=== PATIENT | female | born 1950 | race Caucasian/White ===

== ENCOUNTER 2017-08-22 08:30 | Outpatient (CLI) | payer MEDICARE ==
--- NOTE | 2017-08-22 11:25 | MRI ---
MRI FACE WITH AND WITHOUT CONTRAST: History: Soft tissue swelling of the lateral midright neck. Lymphadenopathy. 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 Comparison: None. Technique: Soft tissue neck MRI is performed with and without intravenous gadolinium administration. Multisequential, multiplanar imaging performed. FINDINGS: Evaluation is limited by motion degradation and breathing motion as well as pulsation artifacts from the carotid arteries. Visualized cervical vertebral bodies have appropriate marrow signal intensity. Visualized brain paren chyma, cervical medullary junction, cervical cord, and the upper thoracic cord have a grossly normal signal intensity. Midline fatty roof of the tongue is preserved. No obvious masses in the oral cavity. Aerodigestive tr act appears to be patent. There is appropriate signal intensity of the visualized parotid and submandibular gland. There is bandar ropriate signal intensity of the cisternal cleidomastoid muscles. Carotid flow voids appear be maintained. Vertebral artery flow voids are only partially evaluated. Left thyroid lobe is surgically absent. There is a heterogeneous slightly enlarged right thyroid lobe . Evaluation is incomplete. No evidence of lymphadenopathy by size criteria. There is evidence of cervical fusion hardware at C5, C6. Associated metallic suspectiblity artifact. No high grade central canal stenosis. Varying degrees of foraminal narrowing, incompletely evaluated. At the level of the palpable marker, no solid or cystic masses. No evidence of lymphadenopathy. There are nonspecific, nonenlarged right side lymph nodes. IMPRESSION: Unremarkable pre and post contrast soft tissue neck MRI. No definite evidence of lymphadenopathy. POS: [facility]
== END 2017-08-22 08:31 | disposition home or self-care (01) ==
LOC: MRI 08:30
PROVIDERS: ATTEND Internal Medicine Medical Oncology
DX: R59.0 Localized enlarged lymph nodes (principal)
CPT/HCPCS: 70543

== ENCOUNTER 2018-01-02 14:36 | Outpatient (CLI) | payer MEDICARE | END 2018-01-02 14:37 | disposition home or self-care (01) | LOC: BICULT 14:36 | PROVIDERS: ATTEND Internal Medicine Geriatric Medicine | DX: R94.6 Abnormal results of thyroid function studies (principal); E04.1 Nontoxic single thyroid nodule; E89.0 Postprocedural hypothyroidism | CPT/HCPCS: 76536 ==

== ENCOUNTER 2018-02-28 11:34 | Outpatient (CLI) | payer MEDICARE ==
[2018-02-28 12:46] LABS: #Basophils 0.1 thou/uL (0.0-0.2); #Eosinphils 0.6 thou/uL (0.0-0.7); #Lymphocytes 1.9 thou/uL (1.20-3.40); #Monocytes 0.5 thou/uL (0.11-0.59); #Neutrophils 4.2 thou/uL (1.40-6.50); %Basophils 0.7 % (0.0-1.0); %Eosinophils 8.2 % (0.0-10.0); %Lymphocytes 26.1 % (21.0-51.0); %Monocytes 6.7 % (0.0-10.0); %Neutrophils 58.3 % (42.0-75.0); Hemoglobin 13.5 g/dL (12.0-16.0); Mean Corpuscular HGB CONC 34.6 g/dL (32.0-36.0); Mean Corpuscular Hemoglobin 32.8 pg (27.0-31.0); Mean Corpuscular Volume 94.6 fl (81.0-99.0); Platelet Count 252 thou/uL (130-400); Red Blood Cell (RBC) Count 4.11 mill/uL (4.20-5.40); White Blood Cell (WBC) Count 7.2 thou/uL (4.8-10.8)
[2018-02-28 13:03] LABS: Anion Gap 10 mmol/L (10-20); BUN (Urea Nitrogen) 11 mg/dL (9.8-20.1); Calc. Creatinine Clearance 0 mL/min (70-130); Calcium 9.4 mg/dL (7.8-10.44); Carbon Dioxide 26 mmol/L (23-31); Chloride 104 mmol/L (98-107); Estimated GFR-MDRD 71; Glucose 112 mg/dL (80-115); Potassium 4.4 mmol/L (3.5-5.1); Sodium 136 mmol/L (136-145)
--- NOTE | 2018-02-28 13:47 | RAD ---
TWO VIEWS CHEST: Date: 02-28-18 Provided Clinical History: Pre op. FINDINGS: Cardiac and mediastinal silhouette is within normal limits. Lungs appear clear. No pleural fluid or p neumothorax apparent. IMPRESSION: No evidence for an acute cardiopulmonary process. POS: [facility]
--- NOTE | 2018-02-28 22:17 | EKG ---
Test Reason : Blood Pressure : / mmHG Vent. Rate : 065 BPM Atrial Rate : 065 BPM P-R Int : 146 ms QRS Dur : 092 ms QT Int : 390 ms P-R-T Axes : 034 039 056 degrees QTc Int : 405 ms Normal sinus rhythm Nonspecific T wave abnormality Abnormal ECG No previous ECGs available Confirmed by DR. Adriana BRUNO MD ([id number]) on 02/28/2018 10:17:24 PM Referred By: KISHORE Confirmed By:DR. Adriana BRUNO MD
== END 2018-02-28 11:35 | disposition home or self-care (01) ==
LOC: LABBT 11:34
PROVIDERS: ATTEND Orthopaedic Surgery Hand Surgery
DX: Z01.818 Encounter for other preprocedural examination (principal); S62.662 Nondisplaced fracture of distal phalanx of right middle finger
CPT/HCPCS: 71046; 80048; 85025; 93005; 93010

== ENCOUNTER 2018-03-04 07:48 | Day surgery (SDC) | payer MEDICARE ==
[2018-02-28 12:17] VITALS: BMI 25.7
[2018-03-04] MEDS ORDERED: Levofloxacin 500 mg/D5W 100 ml Premix Bag ONE (08:33)
[2018-03-04] MEDS ORDERED: Clindamycin/D5W 600 mg/50 ml Premix Bag ONE (08:33)
[2018-03-04] MEDS ORDERED: Bupivacaine PF 0.5% 30 ML VIAL ONE (10:22)
[2018-03-04] MEDS ORDERED: Bacitracin Zinc Ointment 30 gm TUBE ONE (10:22)
[2018-03-04] MEDS ORDERED: Sodium Chloride 0.9% 10 ML ONE (10:22)
[2018-03-04] MEDS ORDERED: Fentanyl 100 MCG/2 ML VIAL ONE (10:48)
[2018-03-04] MEDS ORDERED: Ketorolac Tromethamine 30 MG/ML VIAL ONE ×2 (13:25→13:54)
--- NOTE | 2018-03-04 13:53 | RAD ---
RIGHT FINGER THIRD DIGIT THREE VIEWS: Clinical history: Intraoperative fluoroscopic guidance for surgical pinning. FINDINGS: Magnified fluoroscopic views of the third digit right hand reveal placement of K-wires. Overlying ret racting device is present. IMPRESSION: Intraoperative placement of K-wires about the third digit of the right hand. POS: [facility]
[2018-03-04] MEDS ORDERED: Dexamethasone 20 MG/5 ML VIAL ONE (13:54)
[2018-03-04] MEDS ORDERED: PROPOFOL 200 MG/20 ML VIAL ONE (13:54)
[2018-03-04] MEDS ORDERED: Ondansetron HCl/PF 4 MG/2 ML Vial ONE (13:54)
--- NOTE | 2018-03-05 10:53 | OP ---
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 PROCEDURES PERFORMED: 1. Right distal phalanx fracture nonunion open reduction and internal fixation. 2. Right distal phalangeal joint pinning. 3. Open reduction. 4. Aryan phalangeal neck osteectomy, proximal middle phalanx. 5. C-arm supervision, [id number] code. SPECIMEN: None. BLOOD LOSS: 10 mL. TOURNIQUET TIME: 41 minutes at 250 mmHg pressure. FINDINGS: There was a nonunion of the phalanx fracture, even though there was no evidence of subluxa tion and not a fibrous union. DESCRIPTION OF PROCEDURE: After successful general endotracheal anesthesia, the limb was prepped and draped. Timeout was done appropriately. We then identified the right long finger. C-arm brought i nto the field. We identified whether the lesion was to be marked at the distal end of the displaced fragment, so we could separate and pull from the extensor mechanism reduction. We then made a J-shap ed incision after exsanguination of limb to 250 mmHg pressure, lifted this up, using C-arm to now for reidentified the edge of the bone graft above the lesion and then identified this lesion with zonia salinas gently. We then lifted the fragment which was approximately 6-mm wide and four 3-1/2 mm long and trying to sh ape pattern intra-articular. We then used the curet to prepare the recipient end of the distal phala nx and the fragment. We then cleaned the joint, released any traumatic angulations, placed it back i n its [place] bed just after closing with a K-wire. A K-wire was in excellent position and deep and d orsal palmar enough not to disturb the fixation of the fragment. We then after pinning the distal phalangeal joint, the fragment was then placed in his bed, and he un derwent provisional 0.035 K-wire to hold in place. We then released the tourniquet, visualized to be done in excellent reduction, and began to close with a 5-0 Prolene to soft tissue defect. We also h ad the C-arm visualized and we are in the excellent position with the fragment was touching the all p lanes and there is no separations at this point, as had been the point before. We then obtained hemo stasis with the tourniquet deflated, padded retinaculum with a 4-0 Prolene and then the skin was reap proximated with 5-0 nylon interrupted simple pattern. Bulky dressing applied with a finger splint, a nd the patient left the operating room without evidence of anesthetic or operative complications.
== END 2018-03-04 14:41 | disposition home or self-care (01) ==
LOC: SDC 07:48
PROVIDERS: ATTEND Orthopaedic Surgery Hand Surgery
PROC: 0PST04Z Reposition Right Finger Phalanx with Internal Fixation Device, Open Approach (ICD-10-PCS; principal; 2018-03-04)
PROC: 0PBT0ZZ Excision of Right Finger Phalanx, Open Approach (ICD-10-PCS; 2018-03-04)
DX: S62.662A Nondisplaced fracture of distal phalanx of right middle finger, initial encounter for closed fracture (principal); M25.741 Osteophyte, right hand; E78.5 Hyperlipidemia, unspecified; J45.909 Unspecified asthma, uncomplicated; M81.0 Age-related osteoporosis without current pathological fracture; Z88.1 Allergy status to other antibiotic agents; Z88.2 Allergy status to sulfonamides; Z98.890 Other specified postprocedural states; Z79.51 Long term (current) use of inhaled steroids; Z79.899 Other long term (current) drug therapy
CPT/HCPCS: 76001; 96374; A4216; J1100; J1885; J1956; J2405; J2704; J3010; J3490; S0020

== ENCOUNTER 2018-03-18 13:31 | Outpatient (CLI) | payer MEDICARE | END 2018-03-18 13:32 | disposition home or self-care (01) | LOC: BICMAMMO 13:31 | PROVIDERS: ATTEND Internal Medicine Geriatric Medicine | DX: Z12.31 Encounter for screening mammogram for malignant neoplasm of breast (principal) | CPT/HCPCS: 77063; 77067 ==

== ENCOUNTER 2018-07-04 13:42 | Outpatient (CLI) | payer MEDICARE ==
--- NOTE | 2018-07-04 15:35 | ULT ---
THYROID ULTRASOUND: 07/04/18 HISTORY: Prior left thyroidectomy two years ago. Patient now has right thyroid nodule. FINDINGS: Left lobe of the thyroid gland is not visualized consistent with patient's left thyroidectomy. The right lobe of the thyroid gland measures 4.9 cm x 2.1 cm x 1.7 cm. The thyroid isthmus measuring 0.3 cm in AP dimensions. There is a hyperechoic nodule seen within the mid portion of the right lobe of the thyroid gland sonya uring 1.3 cm in maximal dimensions. This hyperechoic mass is smoothly marginated and wider than tall. No additional nodule is seen within the right lobe of the thyroid gland. IMPRESSION: TI-RADS category 3. Mildly suspicious thyroid nodule. According to TI-RADS recommendations, this lesi on does not meet size criteria for fine needle aspiration, and short interval followup evaluation in six months is recommended. POS: [facility]
== END 2018-07-04 13:43 | disposition home or self-care (01) ==
LOC: BICULT 13:42
PROVIDERS: ATTEND Internal Medicine Endocrinology, Diabetes & Metabolism
DX: E04.1 Nontoxic single thyroid nodule (principal); E89.0 Postprocedural hypothyroidism; Z90.89 Acquired absence of other organs
CPT/HCPCS: 76536

== ENCOUNTER 2018-12-12 07:57 | Day surgery (SDC) | payer MEDICARE ==
[2018-12-11 12:03] VITALS: BMI 24.5
[2018-12-12 08:50] LABS: #Eosinphils 0.8 thou/uL (0.0-0.7); #Lymphocytes 1.3 thou/uL (1.20-3.40); #Monocytes 0.4 thou/uL (0.11-0.59); #Neutrophils 3.4 thou/uL (1.40-6.50); %Basophils 0.6 % (0.0-1.0); %Eosinophils 12.8 % (0.0-10.0); %Lymphocytes 22.6 % (21.0-51.0); %Monocytes 6.5 % (0.0-10.0); %Neutrophils 57.4 % (42.0-75.0); Mean Corpuscular HGB CONC 33.6 g/dL (32.0-36.0); Mean Corpuscular Hemoglobin 31.1 pg (27.0-31.0); Mean Corpuscular Volume 92.6 fL (78.0-98.0); Platelet Count 263 thou/uL (130-400); RBC Distribution Width 11.6 % (11.5-14.5); Red Blood Cell (RBC) Count 4.19 mill/uL (4.20-5.40); White Blood Cell (WBC) Count 5.9 thou/uL (4.8-10.8)
[2018-12-12] MEDS ORDERED: Midazolam HCl 2 mg/2 ml Vial ONE (09:34)
[2018-12-12] MEDS ORDERED: Fentanyl 100 MCG/2 ML VIAL ONE (09:34)
[2018-12-12] MEDS ORDERED: Ketorolac Tromethamine 30 MG/ML VIAL ONE ×2 (11:25→14:59)
--- NOTE | 2018-12-12 12:58 | OP ---
DATE OF PROCEDURE: 12/12/2018 PREOPERATIVE DIAGNOSES: 1. Left middle finger granuloma. 2. Painful deep K-wire, distal phalanx base for mallet finger fracture open treatment almost a year ago. FINDINGS: 1. Mallet finger fracture completely healed even with the pin out/K-wire. 2. Stitch granuloma with two Prolene sutures was found at the base of the granuloma. PROCEDURES PERFORMED: 1. Excision of benign mass, granuloma, dorsal aspect of the left middle finger, 4.5 mm diameter. 2. Removal, with C-arm guidance, a painful deep K-wire from the base of the dorsal distal phalanx (mallet fracture). ANESTHESIA: GLADYS Mazariegos. ESTIMATED BLOOD LOSS: Less than 5 mL. TOURNIQUET TIME: 19 minutes. C-ARM USE: C-arm was used. DESCRIPTION OF PROCEDURE: After successful general endotracheal anesthesia, the limb was prepped and draped. We had time-out done appropriately, identified the finger, and we did the x-ray, which identified the wire. The wire was located about 5 mm distal to the thumb, 4.5 mm slight erythematous mass with thickening consistent with reactive granuloma. We inflated the tourniquet after exsanguination of the limb to 250 mmHg pressure. We used the C-arm to identify small profile of the wires proximal, carried this incision to skin, subcutaneous tissue, identified the wire. The wire seemed to migrate almost so we had to use volar pressure to identify the wire, bring it back into the wound. Once we did this, we saw there was no damage or laxity of the extensor mechanism, we removed the wire. Extensor was intact afterwards. We then made a zigzag incision and then undermined the mass at the neck/distal third of the middle phalanx, where we found two Prolene sutures from the previous tendon repair at that site and we shelled them out without violating any of the tendinous repair. We then did an ellipse to remove the mass and sent it as specimen, closed the lips after deflating the tourniquet and obtained hemostasis with interrupted 5-0 nylon in a mattress pattern. The same suture was used to close the remaining wound and the patient had before closing the wound over tendon, we made a longitudinal incision over the insertion of the terminal tendon in the base of the distal phalanx. We closed this defect with a [id number] 5-0 chromic. There was no gap formation or palmar flexion of any interphalangeal joints, so we did not use a mallet finger splint, only a bulky dressing. The patient left the operating room without evidence of anesthetic operative complication. Job ID: [id number]
--- NOTE | 2018-12-12 14:51 | RAD ---
2 INTRAOPERATIVE FLUOROSCOPIC IMAGES OF THE RIGHT MIDDLE FINGER: Date: 12/12/18 FLUOROSCOPY: Total fluoroscopy time was 11 seconds with total dose of 0.0139 Gy*cm^2. COMPARISON: 03/04/18. FINDINGS/IMPRESSION: The previously noted pins transfixing the base of the distal phalanx and distal interphalangeal joint of the middle digit are not present on this exam. There is osteoarthritis involving the visualized i nterphalangeal joints of the digits. Correlation with intraoperative findings is recommended. POS: [facility]
[2018-12-12] MEDS ORDERED: Dexamethasone 20 MG/5 ML VIAL ONE (14:59)
[2018-12-12] MEDS ORDERED: Lidocaine 1% PF 5 ML VIAL ONE (14:59)
[2018-12-12] MEDS ORDERED: PROPOFOL 200 MG/20 ML VIAL ONE (14:59)
[2018-12-12] MEDS ORDERED: Ondansetron PF 4 MG/2 ML Vial ONE (14:59)
--- NOTE | 2018-12-17 06:09 | PQF ---
[facility] POST DISCHARGE CLINICAL DOCUMENTATION IMPROVEMENT CLARIFICATION FORM l Todays Date: 12/17/18 l Patients Name YESSI VOSS l l Admit Date 12/12/18 l Disch Date 12/12/18 [employer] Grinder External Name Dany Mackey Email: [email or web address] Cell: [phone] To be completed by [employer] External: Present Clinical Indicators - Signs / Symptoms Results and Location in Medical Record [ ] Documentation of: [ ] [ ] Documentation of: [ ] [ ] Documentation of: [ ] [ ] Documentation of: [ ] [ ] Risks [ ] [ ] [ ] Treatment [ ] Stitch granuloma Query for size (cm) of margins of excised lesion. [ ] [ ] To be completed by Physician: GREG MENDEZ The documentation in this patients record requires clarification to ensure coding compliance and accuracy. Check the appropriate box and include in your discharge summary. [ ] [ ] [ ] [ ] Please check this box if this does not apply to this patient [ ] Unable to determine [ ] Other diagnosis: Review the following information and exercise your independent professional judgment in responding to the clarification. Based upon the clinical findings, risk factors, and treatment, please clarify if you are treating one of the above probable or suspected diagnoses. Physician Signature: Date Time MTDD
== END 2018-12-12 13:10 | disposition home or self-care (01) ==
LOC: SDC 07:57
PROVIDERS: ATTEND Orthopaedic Surgery Hand Surgery
PROC: 0RPW0JZ Removal of Synthetic Substitute from Right Finger Phalangeal Joint, Open Approach (ICD-10-PCS; principal; 2018-12-12)
PROC: 0JBK0ZZ Excision of Left Hand Subcutaneous Tissue and Fascia, Open Approach (ICD-10-PCS; 2018-12-12)
DX: M60.242 Foreign body granuloma of soft tissue, not elsewhere classified, left hand (principal); T84.84XA Pain due to internal orthopedic prosthetic devices, implants and grafts, initial encounter; E78.5 Hyperlipidemia, unspecified; J45.909 Unspecified asthma, uncomplicated; M81.0 Age-related osteoporosis without current pathological fracture; Z79.899 Other long term (current) drug therapy; Z88.2 Allergy status to sulfonamides; Z98.1 Arthrodesis status; Z18.89 Other specified retained foreign body fragments
CPT/HCPCS: 76000; 85025; 88305; J1100; J1885; J2001; J2250; J2405; J2704; J3010

== ENCOUNTER 2018-12-26 14:49 | Outpatient (CLI) | payer MEDICARE ==
--- NOTE | 2018-12-26 17:06 | ULT ---
THYROID ULTRASOUND: Date: 12/26/18 COMPARISON: 07/04/18. HISTORY: Status post left thyroid lobectomy. Right thyroid nodule. TECHNIQUE: Multiplanar Miles scale and color Doppler images were obtained in a thyroid ultrasound. FINDINGS: The left thyroid lobe has been removed. There is a hyperechoic, well circumscribed, solid nodule in the right thyroid gland, which is wider t ohara tall, and does not contain suspicious calcifications. This measures 1.3 cm in greatest dimension. No other thyroid nodules are identified. The right thyroid lobe measures 4.8 cm in length. IMPRESSION: The right thyroid nodule is a TIRADS Category 3 lesion. This is stable compared to the prior examinat ion. Per recent recommendations, a nodule that is a TIRADS Category 3 and measuring less than 1.5 cm does not need further follow-up. POS: [facility]
== END 2018-12-26 14:50 | disposition home or self-care (01) ==
LOC: BICULT 14:49
PROVIDERS: ATTEND Internal Medicine Endocrinology, Diabetes & Metabolism
DX: E03.9 Hypothyroidism, unspecified (principal); E04.1 Nontoxic single thyroid nodule
CPT/HCPCS: 76536

== ENCOUNTER 2019-04-06 14:32 | Outpatient (CLI) | payer MEDICARE ==
--- NOTE | 2019-04-06 16:05 | MRI ---
MRI LEFT FOOT WITHOUT CONTRAST: INDICATIONS: History of left foot instability. Left foot pain and swelling for about one year, progressively wors ening. No history of any prior surgery or trauma. COMPARISON: No radiographic or MR comparisons are available. TECHNIQUE: Multiplanar, multisequence MR images were obtained of the left foot without IV contrast. FINDINGS: There is abnormal marrow edema seen within the medial cuneiform, middle cuneiform, base of 2nd metata rsal, and base of 3rd metatarsal. There is subtle, slight lateral offset of the 2nd metatarsal with the middle cuneiform. There is nonvisualization of a robust Lisfranc ligament. Portions of the plan tar aspect of the ligament are likely present and intact on image 25 of series 4 and on image 28 of s eries 9. The interosseous and dorsal components of the ligament are not demonstrated. There is mode rate metatarsus prima varus and hallux valgus deformity of the first ray. There is mild great toe MT P osteoarthrosis. There is mild scattered IP osteoarthrosis. The plantar fascia has a normal signal intensity. The visualized Achilles, medial flexor, and lateral flexor tendons of the ankle appear w ithin normal limits. The extensor tendons are normal appearing. There is a small, 3 mm suspected os teochondral defect involving the lateral aspect of the lateral talar dome, best seen on image 39 of s eries 9. No joint effusion is evident. The sinus tarsi has normal signal intensity. IMPRESSION: 1. Findings suspicious for a partial-thickness tear of the Lisfranc ligament. A small portion of th e plantar based band of the Lisfranc ligament is felt to remain partially intact. There is very subt le offset of the 2nd metatarsal base, in relation to the middle cuneiform, suspicious for Lisfranc li gament instability. Correlation with radiographs recommended. There is abnormal edema involving the medial cuneiform, middle cuneiform, and base of 2nd and 3rd metatarsals, suspicious for reactive miriam ma. 2. Mild great toe metatarsophalangeal osteoarthrosis with moderate metatarsus prima varus and hallux valgus deformity. 3. Small osteochondral defect involving the lateral talar dome. POS: [facility]
== END 2019-04-06 14:33 | disposition home or self-care (01) ==
LOC: BICMRI 14:32
PROVIDERS: ATTEND Podiatrist Foot & Ankle Surgery
DX: M19.072 Primary osteoarthritis, left ankle and foot (principal); M25.375 Other instability, left foot

== ENCOUNTER 2019-05-27 20:22 | Emergency (ER) | payer MEDICARE ==
--- NOTE | 2019-05-27 21:12 | RAD ---
XR Knee Rt 4 View STANDARD: 05/27/2019 8:41 PM CLINICAL INDICATION: Fall with right knee pain COMPARISON: None. FINDINGS: Bones: There is an ossific density seen just superior to the patella which could reflect a small avu lsion fracture off of the superior aspect from the patella near the quad insertion. Recommend correlation. No additional acute osseous abnormality is evident Joints: There is severe osteoarthrosis of the right knee with chondrocalcinosis. There is moderate amalia int capsular distention.. Soft Tissue: No acute abnormality.. IMPRESSION: 1. Question of a small avulsion fracture involving the superior patella near the quad insertion. 2. Severe osteoarthrosis with chondrocalcinosis and moderate joint capsular distention..
[2019-05-27] MEDS ORDERED: Acetaminophen/Codeine 30-300mg Tablet ONE (23:31)
--- NOTE | 2019-05-27 23:54 | CT ---
EXAM: CT the right knee without contrast DATE: 05/27/2019 12:00 AM INDICATION: Fall with right knee pain COMPARISON: Right knee radiographs dated May 27, 2019. FINDING: The ossific density seen along the superior aspect of the patella on the prior radiograph i s related to an osteophyte. There is an intra-articular body seen lateral to the patella within the lateral gutter measuring 1.5 cm. There are severe osteoarthrosis and chondrocalcinosis involving the right knee joint. There is moderate joint effusion present. No definite acute fracture is noted. There is diffuse osteopenia. IMPRESSION:No acute fracture or subluxation demonstrated.
== END 2019-05-28 00:10 | disposition home or self-care (01) ==
LOC: ERS 20:22
DX: M23.91 Unspecified internal derangement of right knee (principal); I10 Essential (primary) hypertension; E03.9 Hypothyroidism, unspecified; J45.909 Unspecified asthma, uncomplicated; Z79.899 Other long term (current) drug therapy; X50.1XXA Overexertion from prolonged static or awkward postures, initial encounter

== ENCOUNTER 2019-07-28 13:17 | Outpatient (CLI) | payer MEDICARE ==
--- NOTE | 2019-07-28 14:03 | RAD ---
Frontal and lateral imaging of the lumbar spine: 07/28/2019 COMPARISON: None HISTORY: Surgery 2 weeks ago FINDINGS: Posterior L5 and S1 right-sided pedicle screws are present with vertically oriented interlo cking dyan. No evidence for hardware failure. No significant anterolisthesis or retrolisthesis. There is dextroscoliosis of the midlumbar spine. There is disc space narrowing with degenerative endp late change and disc space narrowing at L1-2. IMPRESSION: Right-sided postoperative hardware at the lumbosacral junction. Lumbar spine dextroscolio sis with significant degenerative change at the L1-2 level.
== END 2019-07-28 13:18 | disposition home or self-care (01) ==
LOC: BICRAD 13:17
PROVIDERS: ATTEND Neurological Surgery
DX: M47.26 Other spondylosis with radiculopathy, lumbar region (principal); M41.9 Scoliosis, unspecified; Z98.890 Other specified postprocedural states
CPT/HCPCS: 72100

== ENCOUNTER 2019-09-08 14:15 | Outpatient (CLI) | payer MEDICARE ==
--- NOTE | 2019-09-08 15:11 | RAD ---
XR Lumbar Spine 2 Or 3 View: 09/08/2019 12:00 AM L5-S1 fusion COMPARISON: July 28, 2019 FINDINGS: Fracture: None. Alignment: Dextroscoliosis of the lumbar spine is stable Degenerative Change: Advanced disc degenerative disease at L1-L2 is stable. The right-sided pedicle screws at L5 and S1 with interconnecting dyan project in the expected position. There is no overt evidence of loosening. Multilevel disc degenerative facet osteoarthritic changes stable. Soft tissues: Surgical clips are present within the right upper quadrant. Bowel gas pattern is unobst ructed. IMPRESSION: Stable postoperative lumbar spine
== END 2019-09-08 14:16 | disposition home or self-care (01) ==
LOC: BICRAD 14:15
PROVIDERS: ATTEND Neurological Surgery
DX: M54.16 Radiculopathy, lumbar region (principal); Z98.890 Other specified postprocedural states
CPT/HCPCS: 72100

== ENCOUNTER 2019-11-18 14:29 | Outpatient (CLI) | payer MEDICARE ==
--- NOTE | 2019-11-18 14:46 | RAD ---
Exam: 2 views lumbar spine COMPARISON: 09/08/2019 HISTORY: Lumbar radiculopathy. Static pain FINDINGS: 5 lumbar type vertebra. Lumbar spine vertebral body height is maintained. No fracture. Aicha re degenerative disc disease at L1-L2. Mild rightward curvature of the lumbar spine unchanged Redemonstration of unilateral right-sided transpedicular screw at L5 and S1. No perihardware lucency. There is persistent anterolisthesis of L5 upon S1, 0.8 cm. The degree of anterolisthesis has not changed and presumed measures possibly 1 cm. Visualized bony pelvis and sacrum are intact IMPRESSION: 1. Stable degenerative changes of the L1-L2 level. 2. Uncomplicated lumbar fusion at L5-S1 with persistent anterolisthesis
== END 2019-11-18 14:30 | disposition home or self-care (01) ==
LOC: BICRAD 14:29
PROVIDERS: ATTEND Neurological Surgery
DX: M47.26 Other spondylosis with radiculopathy, lumbar region (principal); M43.17 Spondylolisthesis, lumbosacral region; Z98.1 Arthrodesis status
CPT/HCPCS: 72100

== ENCOUNTER 2019-12-07 12:44 | Outpatient (CLI) | payer MEDICARE ==
--- NOTE | 2019-12-07 13:30 | CT ---
CT of thelumbar spine: 12/07/2019 COMPARISON:None available HISTORY:Prior back surgery, back pain radiating down the right leg TECHNIQUE: Serial axial CT imaging at3 mm intervals from thelower thoracic spine through lower sacrum without contrast. Coronal and sagittal reformatted imaging obtained Findings:There is a right-sided L5 and S1 pedicle screw with a vertically oriented interlocking dyan. There is mild lucency adjacent to the dorsal aspect of the right S1 pedicle screw. No evidence for hardware failure. No anterolisthesis or retrolisthesis is evident within the lumbar spine. There is a mild degree of dextroscoliosis centered at the L1-2 level. Evaluation for central canal and/or neural foraminal stenosis is limited on routine lumbar spine CT. T12-L1: No osseous cause of significant central canal or neural foraminal stenosis. L1-2: Disc space narrowing with prominent degenerative endplate change and posterior osteophyte. Bila teral facet hypertrophy with at least moderate left and mild right neural foraminal stenosis. A disc osteophyte complex causes at least mild central canal stenosis with probable moderate left later al recess stenosis. L2-3: No osseous cause of significant central canal or neural foraminal stenosis. Mild left-sided fac et hypertrophy. L3-4: There is mild bilateral facet hypertrophy with mild bilateral neural foraminal stenosis. There is mild bilateral ligamentum flavum hypertrophy with mild disc bulge and mild central canal stenosis. L4-5: Disc space narrowing with vacuum disc formation. Bilateral facet hypertrophy with mild/moderate bilateral neural foraminal stenosis. Mild disc bulge and bilateral ligamentum flavum hypertrophy causes at least mild central canal stenosis. L5-S1: There is disc space narrowing with vacuum disc formation. Bilateral facet hypertrophy, left gr eater than right. Moderate/severe right neural foraminal stenosis. Mild central canal and mild left neural foraminal stenosis. No acute fracture or evidence of dislocation. No worrisome lytic or blastic bone lesion. There is an incompletely imaged hypodense lesion emanating from the upper pole of the right kidney me asuring at least 5.6 cm, internal Hounsfield units of approximately 20-25, slightly above that expected for a simple cyst. Impression: 1. Multilevel postoperative and degenerative change within the lumbar spine as described above. If fu rther assessment for central canal and/or neural foraminal stenosis is clinically warranted, CT myelogram of the lumbar spine suggested. 2. Nonspecific hypodense lesion emanating from the upper pole of the right kidney for which renal ult rasound is advised CODE T
== END 2019-12-07 12:45 | disposition home or self-care (01) ==
LOC: BICCT 12:44
PROVIDERS: ATTEND Neurological Surgery
DX: M47.26 Other spondylosis with radiculopathy, lumbar region (principal); N28.9 Disorder of kidney and ureter, unspecified; Z98.890 Other specified postprocedural states
CPT/HCPCS: 72131

== ENCOUNTER 2020-03-14 10:12 | Outpatient (CLI) | payer MEDICARE ==
--- NOTE | 2020-03-14 15:59 | ULT ---
THYROID ULTRASOUND: DATE: 03/14/2020. COMPARISON: 12/26/2018. HISTORY: Reevaluate thyroid nodule. TECHNIQUE: Multiplanar, santiago scale sonographic imaging of the thyroid gland obtained. FINDINGS: Thyroid isthmus measures 2 mm in AP dimension. Right lobe measures 2.3 x 5.0 x 2.2 cm. The left lobe of the thyroid gland is absent. There is an echogenic nodule within the mid aspect of the right lobe measuring 1.5 x 1.0 x 1.3 cm, wh ich has increased in size when compared to the prior study at which time it measured 1.2 x 1.3 x 1.0 cm. IMPRESSION: Solid echogenic nodule within the mid portion of the right lobe of the thyroid gland measuring up to 1.5 cm, increased from 1.2 on the prior examination. This is a TIRADS category 4 lesion - moderately suspicious. Given size, fine needle aspiration is advised. POS: [facility]
== END 2020-03-14 10:13 | disposition home or self-care (01) ==
LOC: BICULT 10:12
PROVIDERS: ATTEND Internal Medicine Endocrinology, Diabetes & Metabolism
DX: E04.1 Nontoxic single thyroid nodule (principal)
CPT/HCPCS: 76536

== ENCOUNTER 2022-02-15 15:26 | Outpatient (CLI) | payer MEDICARE | END 2022-02-15 15:27 | disposition home or self-care (01) | LOC: SCSRAD 15:26 | PROVIDERS: ATTEND Neurological Surgery | DX: M54.6 Pain in thoracic spine (principal); M47.814 Spondylosis without myelopathy or radiculopathy, thoracic region; M51.34 Other intervertebral disc degeneration, thoracic region | CPT/HCPCS: 72070 ==